=== PATIENT | male | born 1990 | race American Indian/Alaskan Native ===

== ENCOUNTER 2017-02-14 10:46 | Emergency (ER) | payer OTHER ==
[2017-02-14 11:09] VITALS: BP 114/69
--- NOTE | 2017-02-14 12:51 | Emergency Department Report ---
ED Rash HPI - HPI Chief Complaint: Skin Rash Stated Complaint: LEFT FOOT PAIN,RASH ON FOREHEAD Time Seen by Provider: 02/14/17 12:41 Duration: 1 week Location: Head, Neck, Chest, Back, Abdomen, Upper Extremities, Lower Extremities , Other (face) Suspected Cause: Unknown Rash Symptoms: Yes Itching (Generalize), Yes Tongue/Oral Swelling, No Facial Swelling, No Breathing Difficulties, No Choking Sensation, No Wheezing/Dyspnea, No Peeling, No Blistering, No Fever, No Lightheaded, No Malaise, No Myalgias Severity: moderate (denies pain to rash sites but reports itching. He is also complaining of left foot pain without any swelling and he said he thinks he has ringworm.) Other History: Patient here reports that he has rash all over his body that started 1 week ago and it is very itchy. Patient did not disclose that he is HIV positive to triage nurse but when asked, he said that he is HIV positive and is not on any medication at present because he just moved to [place] and he has to get his insurance sorted out. He denies any cough, shortness of breath, chest pain, fever or chills. Denies any sore throat. He did say about 2 weeks ago he had nasal congestion or runny nose that cleared up. He said he cannot remember what his last T-cell or viral load was. He is complaining of pain to his left foot without any injury at 4 out of 10 and 6 specific is he's been walking a lot or from his shoes. HEENT is achy and said he did not take any pain medication. Denies any pain to rash sites just report really bad itching. No difficulty breathing and and denies any new anything new in his environment . ED Review of Systems ROS: Stated complaint: LEFT FOOT PAIN,RASH ON FOREHEAD Other details as noted in HPI Comment: All other systems reviewed and negative Constitutional: no symptoms reported ENT: denies: ear pain, throat pain, congestion Respiratory: no symptoms reported Cardiovascular: denies: chest pain, palpitations, dyspnea on exertion, edema, syncope, paroxysmal nocturnal dyspnea Gastrointestinal: denies: abdominal pain, nausea, vomiting, diarrhea Genitourinary: denies: dysuria, frequency, hematuria, discharge Musculoskeletal: arthralgia. denies: back pain, joint swelling, myalgia Skin: rash, pruritus Neurological: denies: headache, numbness, paresthesias, confusion, abnormal gait , vertigo ED Past Medical Hx - Past Medical History Previous Medical History?: No - Surgical History Past Surgical History?: No - Family History Family history: no significant - Social History Smoking Status: Never Smoker Substance Use Type: Alcohol, Marijuana - Medications Home Medications: Home Medications Medication Instructions Recorded Confirmed Last Taken Type Fluconazole [Diflucan TAB] 100 mg PO QDAY 2 Days #2 tablet 02/14/17 Unknown Rx Ibuprofen [Motrin] 600 mg PO Q8H PRN 4 Days #12 tablet 02/14/17 Unknown Rx Miconazole 2% [Monistat-Derm] 1 applicatio TP BID 7 Days #1 tube 02/14/17 Unknown Rx Valacyclovir HCl [Valtrex] 1,000 mg PO TID 21 Days #7 tablet 02/14/17 Unknown Rx hydrOXYzine HCL [Atarax] 25 mg PO Q6HR PRN 3 Days #12 tablet 02/14/17 Unknown Rx Rash Exam - Exam General: Vital signs noted. No distress. Alert and acting appropriately. 26-year-old male well-nourished well-developed in no acute distress and nontoxic in appearance. HEENT: No Periorbital Edema, No Conjuctival Injection, No Chemosis, No Perioral Edema, No Tongue Edema, No Uvular Edema, No Compromised Airway, No Drooling Lungs: Yes Good Air Exchange, No Wheezes, No Ronchi, No Stridor, No Cough, No Labored Respirations, No Retractions, No Use of Accessory Muscles, No Other Abnormal Lung Sounds Heart: Yes Regular, No Murmur Skin: Yes Edema (swelling, mild), Yes Other, No Urticarial Rash, No Maculopapular Rash, No Morbilliform rash, No Bulla(e), No Excoriations, No Weeping, No Tenderness, No Erythema, No Encrustations Other: Positive: Abdomen Normal, Neurologic Normal, Musculoskeletal Normal ED Course Vital Signs 02/14/17 11:06 Temperature 97.7 F Pulse Rate 90 Respiratory 16 Rate Blood Pressure 114/69 O2 Sat by Pulse 100 Oximetry - Reevaluation(s) Reevaluation #1: 02/14/17 13:53 Patient stable throughout ED stay ED Medical Decision Making - Medical Decision Making ED course: She presents to emergency room with rash that he reports is very itchy and started 1 week ago. This was preceded by upper respiratory tract infection per patient. Patient has a history of HIV and he is not on any medication because he has to get his insurance reestablished. He was not able to tell me what his last CD4 or viral load was. He is also complaining of left foot pain that he said is achy in 4-10 and contributes to shoes or walk-in. Exam of extremities normal. Patient with +2 pulses to all extremities. No clubbing, cyanosis or edema noted. Patient with a generalized to anterior and posterior thorax, sparsely scattered to face and scalp, bilateral upper and lower extremities and to suprapubic area. No signs of cellulitis and morphology if rash is patchy is in clusters or single, raised would met well demarcated edges somewhat clearing to Center. Some rash with darker pigmented another with cork insulation setter pigments. Areas of [place] patches, plaques. Basically rash looked like mixture of viral and fungal rash together. Patient is immunocompromise. I discussed the patient diagnosis and treatment plan and he was understanding I told him that he will need to get reestablished with infectious disease doctor and also follow up with diesel fitter mechanic. I also instructed patient he can go to [facility] and they will direct him to infectious disease [facility]. Patient voiced understanding of discharge instruction and treatment plan and discharged home with prescription for Valtrex to cover viral rash, Diflucan, 2 for fungal rash and fungal cream. Critical care attestation.: If time is entered above; I have spent that time in minutes in the direct care of this critically ill patient, excluding procedure time. ED Disposition Clinical Impression: Pityriasis rosea, Pruritus, Tinea, HIV-1 infection, Left foot pain Disposition: DC- TO HOME OR SELFCARE Is pt being admited?: No Does the pt Need Aspirin: No Condition: Stable Instructions: Pityriasis rosea (ED), Antifungals (On the skin), Tinea Corporis (ED), Arthralgia (ED) Additional Instructions: Please keep affected areas clean and dry Follow up with diesel fitter mechanic and [facility] as suggested Take medication as prescribed Increase your fluid intake He is to not drive or operate heavy machinery while taking and Atarax of this medication causes drowsiness He can take Motrin as prescribed for pain in your foot. Prescriptions: Fluconazole [Diflucan TAB] 100 mg PO QDAY 2 Days #2 tablet hydrOXYzine HCL [Atarax] 25 mg PO Q6HR PRN 3 Days #12 tablet PRN Reason: Itching Ibuprofen [Motrin] 600 mg PO Q8H PRN 4 Days #12 tablet PRN Reason: Pain Miconazole 2% [Monistat-Derm] 1 applicatio TP BID 7 Days #1 tube Valacyclovir HCl [Valtrex] 1,000 mg PO TID 21 Days #7 tablet Referrals: PRIMARY CARE,MD [Primary Care Provider] - 3-5 Days Forms: Accompanied Note, Work/School Release Form(ED)
== END 2017-02-14 14:28 | disposition home or self-care (01) ==
LOC: ED 10:46
DX: L42 Pityriasis rosea (principal); L29.9 Pruritus, unspecified; B35.8 Other dermatophytoses; Z21 Asymptomatic human immunodeficiency virus [HIV] infection status; F12.10 Cannabis abuse, uncomplicated
CPT/HCPCS: 99282